=== PATIENT | male | born 1980 | race Caucasian/White ===

== ENCOUNTER → 2016-11-02 | Outpatient (CLI) | payer BC, MEDICARE ==
--- NOTE | ~2016-11-02 | ECH ---
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 Doppler not performed. Technically adequate exam. The estimated left ventricular ejection fraction is 60-65%. Mild concentric left ventricular hypertrophy. Small global pericardial effusion. The mass compressing the left atrium noted on study of 07/18/2015, is not clearly defined on todays study. Procedure Type of Study TTE procedure:Echo Limited SF. Procedure Date Date: 11/02/2016 Start: 09:20 AM Technical Quality: Adequate visualization Indications:High Risk Medication Use. Additional Indications:Chemo Appropriate Use Criteria: 9 Height: 72 inches Weight: 162 pounds BSA: 1.95 m Rhythm: Sinus tachycardia HR: 103 bpm BP: 102/66 mmHg M-Mode/2D Measurements LV Diastolic Dimension: 4.04 cm LV Systolic Dimension: 2.82 cm LV Septum Diastolic: 1.2 cm LV PW Diastolic: 1.25 cm AO Root Dimension: 3.1 cm LA Dimension: 2.6 cm RV Diastolic Dimension: 2.84 cm LA volume: 33 ml Post Pericard Effusion: 0.8 cm LA volume index: 17 ml/m LVOT: 2.31 cm RV Base: 3.1 cm RV Mid: 2.1 cm TAPSE: 2.9 cm Doppler Measurements RA Area: 10.94 cm Findings Left Ventricle The left ventricle is normal in size . Mild concentric left ventricular hypertrophy. Right Ventricle Normal right ventricle structure and function. Left Atrium Normal left atrial size. Right Atrium Normal right atrial size. Mitral Valve Normal mitral valve structure and function. Aortic Valve Normal aortic valve structure and function. Tricuspid Valve Normal tricuspid valve structure and function. Pulmonic Valve Normal pulmonic valve structure and function. Pericardial Effusion Small global pericardial effusion. Miscellaneous Visualized portions of the aortic root and ascending aorta appear normal in size. Pleural Effusion No evidence of pleural effusion. Signature
== END | disposition home or self-care (01) ==
LOC: CARD 09:00
DX: Z51.81 Encounter for therapeutic drug level monitoring (principal); I31.3 Pericardial effusion (noninflammatory); I51.7 Cardiomegaly; C78.00 Secondary malignant neoplasm of unspecified lung; C49.21 Malignant neoplasm of connective and soft tissue of right lower limb, including hip